=== PATIENT | female | born 1950 | race African-American/Black ===

== ENCOUNTER → 2018-07-31 | Outpatient (CLI) | payer OTHER ==
[~2018-07-31] MED LIST: BLOOD PRESSURE MED; CARISOPRODOL 3350 MG PO; LIPITOR20 MG PO; NAPROSYN500 MG PO; NORCO 5-325 TA1 EACH PO
== END ==
LOC: RAD 09:11
DX: R06.02 Shortness of breath (principal); Z90.49 Acquired absence of other specified parts of digestive tract

== ENCOUNTER → 2019-02-05 | Outpatient (CLI) | payer OTHER | LOC: CAT 11:02 | DX: R91.8 Other nonspecific abnormal finding of lung field (principal); D86.9 Sarcoidosis, unspecified; Z88.0 Allergy status to penicillin; Z88.8 Allergy status to other drugs, medicaments and biological substances ==

== ENCOUNTER → 2021-06-03 | Outpatient (CLI) | payer OTHER | LOC: RAD 13:17 | PROVIDERS: ATTEND Pediatrics | DX: R06.00 Dyspnea, unspecified (principal); D86.9 Sarcoidosis, unspecified ==

== ENCOUNTER → 2021-06-10 | Outpatient (CLI) | payer OTHER ==
[2021-06-10 10:43] LABS: CREATININE 1.2 mg/dL (0.6-1.0)
== END ==
LOC: CAT 09:11
PROVIDERS: ATTEND Pediatrics
DX: R06.00 Dyspnea, unspecified (principal); D86.9 Sarcoidosis, unspecified

== ENCOUNTER → 2021-06-22 | Outpatient (CLI) | payer OTHER | LOC: PET 13:15 | PROVIDERS: ATTEND Pediatrics | DX: J84.89 Other specified interstitial pulmonary diseases (principal); K76.0 Fatty (change of) liver, not elsewhere classified; R91.8 Other nonspecific abnormal finding of lung field; Z90.49 Acquired absence of other specified parts of digestive tract ==